=== PATIENT | female | born 1970 | race Caucasian/White ===

== ENCOUNTER 2024-07-17 23:31 | Emergency (ER) | payer MEDICAID, OTHER ==
[~2024-07-17] VITALS: Ht 167.6 cm; Wt 75.0 kg
[2024-07-17 23:37] VITALS: O2SAT 100
[2024-07-18 00:01] LABS: BASOPHILS % 0.7 % (0.0-2.0); EOSINOPHILS % 6.9 % (0.0-5.0); HEMATOCRIT. 36.8 % (36.0-48.0); HEMOGLOBIN. 12.5 g/dL (12.0-16.0); LYMPHOCYTES % 34.3 % (20.0-50.0); MEAN CORPUSCULAR HEMOGLOBIN 30.6 pg (28.0-32.0); MEAN CORPUSCULAR HGB CONC 33.9 g/dL (31.0-37.0); MEAN CORPUSCULAR VOLUME 90.4 fL (81.0-99.0); MONOCYTES % 5.3 % (2.0-8.0); NEUTROPHILS % 52.8 % (40.0-76.0); PLATELET 267 x1000/uL (130-400); RED BLOOD CELL COUNT 4.07 mill/uL (4.2-5.4); RED CELL DISTRIBUTION WIDTH 13.4 % (11.6-14.6); WHITE BLOOD COUNT 5.6 x1000/uL (4.5-11.0)
[2024-07-18 00:11] LABS: INR 0.9; PROTHROMBIN TIME 10.3 sec (9.6-11.0)
[2024-07-18 00:17] LABS: CHLORIDE 103 mEq/L (98-107); POTASSIUM 3.2 mEq/L (3.5-5.1); SODIUM 140 mEq/L (136-145)
[2024-07-18 00:18] LABS: CARBON DIOXIDE 30 mEq/L (21-32)
[2024-07-18 00:19] LABS: CALCIUM 9.4 mg/dL (8.7-10.4)
[2024-07-18 00:23] LABS: GLUCOSE 130 mg/dL (70-105); UREA NITROGEN BLOOD 15 mg/dL (9-23)
[2024-07-18 00:25] LABS: TROPONIN I HIGH SENSITIVITY 5 ng/L (3.0-34)
[2024-07-18 00:29] LABS: ETHANOL BLOOD < 10 mg/dL (<10)
[2024-07-18] MEDS: POTASSIUM CHLORIDE 20MEQ/PACKET PO NR (00:30)
[2024-07-18] MEDS ORDERED: POTA-204 MT (00:45)
[2024-07-18 01:00] VITALS: BP 152/79; PULSE 81; RESP 16; TEMP 36.78072; O2SAT 100
== END 2024-07-18 03:11 | disposition home or self-care (01) ==
LOC: ER 23:43
DX: R00.2 Palpitations (principal); I10 Essential (primary) hypertension; E87.6 Hypokalemia; J45.909 Unspecified asthma, uncomplicated; Z88.1 Allergy status to other antibiotic agents; Z88.2 Allergy status to sulfonamides
CPT/HCPCS: 36415; 71045; 80048; 80320; 83880; 84484; 85025; 93005; 99285; G0480